=== PATIENT | female | born 1975 | race Caucasian/White ===

== ENCOUNTER 2024-06-21 08:17 | Inpatient (IN) | payer BC ==
[2024-06-21 09:16] LABS: #Basophils 0.05 10x3/uL (0.0-0.2); %Basophils 0.7 % (0.0-1.0); %Eosinophils 1.8 % (0.0-10.0); %Lymphocytes 20.6 % (21.0-51.0); %Monocytes 5.7 % (0.0-10.0); %Neutrophils 70.9 % (42.0-75.0); Hematocrit 46.4 % (36.0-47.0); Hemoglobin 15.5 g/dL (12.0-16.0); Mean Corpuscular HGB CONC 33.4 g/dL (32.0-36.0); Mean Corpuscular Hemoglobin 30.5 pg (27.0-31.0); Mean Corpuscular Volume 91.3 fL (78.0-98.0); Mean Platelet Volume 11.3 fL (7.4-10.4); Platelet Count 230 10x3/uL (130-400); RBC Distribution Width 13.3 % (11.5-14.5); Red Blood Cell (RBC) Count 5.08 mill/uL (4.20-5.40)
[2024-06-21 09:35] LABS: ALT (SGPT) 19 U/L (8-55); AST (SGOT) 19 U/L (5-34); Albumin 4.8 g/dL (3.5-5.0); Alkaline Phosphatase 78 U/L (40-110); Anion Gap 14 mmol/L (10-20); BUN (Urea Nitrogen) 12 mg/dL (9.8-20.1); Bilirubin, Total 0.4 mg/dL (0.2-1.2); Calc. Creatinine Clearance 0 mL/min (70-130); Calcium 10.1 mg/dL (7.8-10.44); Carbon Dioxide 27 mmol/L (22-29); Chloride 105 mmol/L (98-107); Estimated GFR 92; Globulin 2.8 g/dL (2.4-3.5); Glucose 93 mg/dL (70-105); Lipase 77 U/L (8-78); Potassium 3.9 mmol/L (3.5-5.1); Protein, Total 7.6 g/dL (6.0-8.3); Sodium 142 mmol/L (136-145)
[2024-06-21 09:51] LABS: Troponin I Less than 0.010 ng/mL (< 0.028)
[2024-06-21] MEDS ORDERED: Ondansetron PF 4 MG/2 ML Vial ONE (10:54)
[2024-06-21] MEDS ORDERED: Acetaminophen 650 MG Suppository PR PRN (11:05)
[2024-06-21] MEDS ORDERED: Ondansetron ODT 4 MG TAB PO PRN (11:05)
[2024-06-21] MEDS ORDERED: Acetaminophen 325 MG TAB PO PRN (11:05)
[2024-06-21] MEDS ORDERED: Senokot S 8.6-50 MG TAB PO PRN (11:05)
[2024-06-21] MEDS ORDERED: Ondansetron PF 4 MG/2 ML Vial IVP PRN (11:05)
[2024-06-21] MEDS ORDERED: Nitroglycerin 0.4 MG TAB (25 Tab Bottle) SL PRN (11:06)
[2024-06-21] MEDS ORDERED: Aspirin Chewable 81 MG TAB ONE (11:16)
[2024-06-21 12:29] LABS: Troponin I Less than 0.010 ng/mL (< 0.028)
[2024-06-21 12:33] VITALS: BMI 23.3
[2024-06-21 15:42] LABS: Troponin I Less than 0.010 ng/mL (< 0.028)
[2024-06-21] MEDS: Atorvastatin Calcium 40 MG TAB PO SCH (20:46)
[2024-06-21] MEDS: Famotidine 20 MG TAB PO SCH (20:46)
[2024-06-22 05:39] LABS: Anion Gap 11 mmol/L (10-20); BUN (Urea Nitrogen) 8 mg/dL (9.8-20.1); Calc. Creatinine Clearance 67 mL/min (70-130); Calcium 9.3 mg/dL (7.8-10.44); Carbon Dioxide 29 mmol/L (22-29); Cardiac Risk 3.2 (Less than 4.5); Chloride 107 mmol/L (98-107); Cholesterol 178 mg/dl (< 200 Desired); Estimated GFR 87; Glucose 101 mg/dL (70-105); HDL Cholesterol 56 mg/dL (>60 Neg Risk); LDL Cholesterol, Calculated 103 mg/dL; Potassium 4.4 mmol/L (3.5-5.1); Sodium 143 mmol/L (136-145); Triglycerides 93 mg/dL (Less than 150)
[2024-06-22] MEDS: Aspirin Chewable 81 MG TAB PO SCH (08:05)
[2024-06-22] MEDS: Enoxaparin 40 MG (0.4 mL) SYRINGE SC SCH (08:05)
[2024-06-22] MEDS: Citalopram 20 MG TAB PO SCH (08:06)
[2024-06-22] MEDS ORDERED: Regadenoson 0.4 MG/5 ML SYRINGE ONE (09:13)
[2024-06-23] MEDS: Sodium Chloride 0.9% 1,000 ML IV SCH (05:57)
[2024-06-23] MEDS ORDERED: Communication Order-Pharmacy FS SCH (06:00)
[2024-06-23] MEDS ORDERED: Midazolam HCl 2 mg/2 ml Vial ONE (06:22)
[2024-06-23] MEDS ORDERED: Heparin 10,000 UNITS/ 10 ML VIAL ONE (06:22)
[2024-06-23] MEDS ORDERED: fentaNYL 50 mcg/mL 1 mL Vial ONE (06:22)
[2024-06-23] MEDS ORDERED: Nitroglycerin 50 MG/250 ML BOT 0 ML ONE (06:22)
[2024-06-23] MEDS ORDERED: Atropine Sulfate 1 mg/10 ml Syringe ONE (07:49)
[2024-06-23] MEDS ORDERED: Nitroglycerin 0.4 MG TAB (25 Tab Bottle) SL PRN (08:20)
[2024-06-23] MEDS ORDERED: Sodium Chloride 0.9% 200 ML IV PRN (08:20)
[2024-06-23] MEDS: Bupropion 150 MG SR.TAB PO SCH (09:00)
[2024-06-23] MEDS ORDERED: Non-Formulary Item 1 EACH (Citalopram Hydrobromide [Citalopram Hbr] 40 MG Tablet) PO SCH (09:00)
[2024-06-23 11:46] VITALS: BP 103/61; TEMP 98.8
[2024-06-23] MEDS ORDERED: Iopamidol 370 76% 100 ML VIAL ONE (13:06)
[2024-06-23] MEDS ORDERED: dilTIAZem 30 MG TAB PO SCH (15:00)
== END 2024-06-23 15:21 | disposition home or self-care (01) | DRG 287 ==
LOC: ERS 08:17 → ERHOLD 10:50 → OBS 12:29 → OBSVTOIN 06-22 15:23
PROVIDERS: ADMIT Hospitalist; ATTEND Internal Medicine
PROC: 4A023N7 Measurement of Cardiac Sampling and Pressure, Left Heart, Percutaneous Approach (ICD-10-PCS; principal; 2024-06-23)
DX: I25.119 Atherosclerotic heart disease of native coronary artery with unspecified angina pectoris (principal); G43.909 Migraine, unspecified, not intractable, without status migrainosus; F41.9 Anxiety disorder, unspecified; F10.90 Alcohol use, unspecified, uncomplicated; I73.9 Peripheral vascular disease, unspecified; Z88.0 Allergy status to penicillin; Z87.891 Personal history of nicotine dependence; Z88.2 Allergy status to sulfonamides; Z79.02 Long term (current) use of antithrombotics/antiplatelets; Z79.82 Long term (current) use of aspirin; Z79.899 Other long term (current) drug therapy
CPT/HCPCS: 36415; 71045; 78452; 80048; 80053; 80061; 83690; 83880; 84443; 84484; 85025; 85379; 93005; 93017; 93458; 94760; 96372; 96374; 99152; 99153; A9500; C1769; C1894; G0378; J0461; J1644; J1650; J2250; J2405; J2785; J3010; Q9967